=== PATIENT | female | born 1980 | race Caucasian/White ===

== ENCOUNTER → 2018-07-04 | Outpatient (CLI) | payer BC ==
--- NOTE | 2018-07-04 13:32 | REP ---
Left knee series: The five views. History: Other internal derangement of the left knee. Findings: By views of the left knee demonstrate evidence of a joint effusion. The lateral view shows a nondisplaced transversely oriented fracture through the lower pole of the patella. There is prepatellar soft-tissue swelling. There is some swelling in the infrapatellar fat. Swelling is seen in the patellar tendon. Clothing artifact is noted. No other fracture is seen. Bones joints and soft tissues are otherwise unremarkable. Impression: Nondisplaced inferior pole fracture of the patella. Associated swelling. Joint effusion. Electronically Signed by Demetrius Alanis MD 07/04/2018 01:31 P
== END ==
LOC: M ADAMS 13:00
PROVIDERS: ATTEND Physician Assistant
DX: S82.035A Nondisplaced transverse fracture of left patella, initial encounter for closed fracture (principal); M25.462 Effusion, left knee; X58.XXXA Exposure to other specified factors, initial encounter; Y92.9 Unspecified place or not applicable; M79.89 Other specified soft tissue disorders

== ENCOUNTER → 2020-04-08 | Outpatient (CLI) | payer SELFPAY | LOC: M LABSMTC 09:33 | PROVIDERS: ATTEND Pediatrics | DX: Z20.822 Contact with and (suspected) exposure to COVID-19 (principal) ==

== ENCOUNTER → 2022-05-01 | Outpatient (CLI) | payer BC | LOC: M WUC 08:47 | PROVIDERS: ATTEND Nurse Practitioner Adult Health | DX: M54.18 Radiculopathy, sacral and sacrococcygeal region (principal); Z87.828 Personal history of other (healed) physical injury and trauma ==